=== PATIENT | female | born 1995 | race American Indian/Alaskan Native ===

== ENCOUNTER 2018-12-28 07:27 | Outpatient (CLI) | payer OTHER ==
[2018-12-28 07:50] VITALS: BP 123/72
== END 2018-12-28 10:02 | disposition home or self-care (01) ==
LOC: TRG 07:27
PROVIDERS: ATTEND Obstetrics & Gynecology
DX: O47.1 False labor at or after 37 completed weeks of gestation (principal); Z3A.38 38 weeks gestation of pregnancy
CPT/HCPCS: 59025

== ENCOUNTER 2018-12-28 16:38 | Inpatient (IN) | payer OTHER ==
[2018-12-28] MEDS ORDERED: TERBUTALINE 1 MG/1 ML INJ SUB-Q PRN (18:55)
[2018-12-28] MEDS ORDERED: ePHEDrine SULFATE 50 MG/1 ML INJ IV PRN ×2 (18:55→22:14)
[2018-12-28] MEDS ORDERED: TERBUTALINE 1 MG/1 ML INJ IVP PRN (18:55)
[2018-12-28] MEDS ORDERED: MINERAL OIL 30 ML ORAL LIQD PO PRN (18:55)
[2018-12-28] MEDS ORDERED: fentaNYL 100 MCG/2 ML INJ IV PRN (18:55)
[2018-12-28] MEDS ORDERED: LIDOCAINE (2%) 20 MG/1 ML VIAL 20 ML MDV INFILTRATI ONE (18:55)
[2018-12-28] MEDS ORDERED: BUTORPHANOL 2 MG/1 ML INJ IV PRN (18:55)
[2018-12-28] MEDS ORDERED: OXYTOCIN DRIP 30 UNITS/500 ML BAG IV SCH ×2 (19:00→23:50)
[2018-12-28] MEDS ORDERED: OXYTOCIN 20 UNIT/1000ML DRIP 20 UNITS/1,000 ML BAG IV SCH (19:00)
[2018-12-28 19:10] LABS: Hematocrit 34.4 % (30.3-42.9); Hemoglobin 11.3 gm/dl (10.1-14.3); Mean Corpuscular HGB Conc 33 % (30-34); Mean Corpuscular Volume 89 fl (79-97); Platelet Count 407 K/mm3 (140-440); Red Blood Count 3.87 M/mm3 (3.65-5.03); Red Cell Distribution Width 14.1 % (13.2-15.2)
[2018-12-28] MEDS ORDERED: AMPICILLIN/NS 2 GM/100 ML 2 GM/100 ML BAG IV ONE (19:30)
[2018-12-28] MEDS: LACTATED RINGERS 1,000 ML IV SCH ×3 (21:00→22:43)
[2018-12-28 21:30] LABS: Hematocrit 36.9 % (30.3-42.9); Hemoglobin 11.9 gm/dl (10.1-14.3)
[2018-12-28] MEDS ORDERED: BUPIVACAINE/PF (0.5%) 5 MG/1 ML 10 ML VIAL INFILTRATI ONE (21:41)
[2018-12-28] MEDS ORDERED: AMPICILLIN/NS 1 GM/50 ML 1 GM/50 ML BAG IV SCH (22:00)
[2018-12-28] MEDS ORDERED: NALOXONE 2 MG/2 ML INJ IV PRN (22:14)
--- NOTE | 2018-12-28 22:14 | Anesthesia Consultation ---
Anesthesia Consult and Med Hx Date of service: 12/28/18 - Airway Anesthetic Teeth Evaluation: Good ROM Head & Neck: Adequate Mental/Hyoid Distance: Adequate Mallampati Class: Class II Intubation Access Assessment: Good - Pulmonary Exam CTA: Yes - Cardiac Exam Cardiac Exam: RRR - Pre-Operative Health Status ASA Pre-Surgery Classification: ASA2, Emergency Proposed Anesthetic Plan: Epidural - Pulmonary Hx Asthma: No - Cardiovascular System Hx Hypertension: No - Central Nervous System Hx Seizures: No Hx Psychiatric Problems: No - Endocrine Hx Renal Disease: No Hx Hypothyroidism: No Hx Hyperthyroidism: No - Hematic Hx Anemia: No Hx Sickle Cell Disease: No - Other Systems Hx Alcohol Use: No
[2018-12-28] MEDS ORDERED: fentaNYL-BUPIV 2 MCG/ML-0.125% 200 MCG/100 ML BAG EPIDURAL SCH (23:00)
[2018-12-29] MEDS: LACTATED RINGERS 1,000 ML IV SCH (02:29)
--- NOTE | 2018-12-29 03:12 | History and Physical Report ---
History of Present Illness Date of examination: 12/29/18 Date of admission: 12/28/18 19:20 Chief complaint: contractions History of present illness: This is a 23 yo EDC Dec 3 her efor contractions. She is apatient of [facility] here for contractions noted to be 4cm and admitted. She has a hx of asthma. She had a hx of pericardial effusion but resolved per MFM. Past History Past Medical History: asthma Past Surgical History: denies: no surgical history Family/Genetic History: none Social history: no significant social history, single. denies: smoking, alcohol abuse, prescription drug abuse - Obstetrical History Expected Date of Delivery: 01/13/19 Actual Gestation: 37 Week(s) 6 Day(s) : 1 Para: 0 Hx # Term Pregnancies: 0 Number of Pregnancies: 0 Spontaneous Abortions: 0 Induced : 0 Number of Living Children: 0 Medications and Allergies Allergies Allergy/AdvReac Type Severity Reaction Status Date / Time No Known Allergies Allergy Verified 12/28/18 17:55 Home Medications Medication Instructions Recorded Confirmed Last Taken Type Vit-Fe Fumar-FA [ 1 tab PO DAILY 12/28/18 12/28/18 3 Weeks Ago History Vitamin] ~12/07/18 Active Meds: Active Medications Butorphanol Tartrate (Stadol) 2 mg IV Q2H PRN PRN Reason: Pain , Severe (7-10) Ephedrine Sulfate (Ephedrine Sulfate) 10 mg IV Q2M PRN PRN Reason: Hypotension Ephedrine Sulfate (Ephedrine Sulfate) 10 mg IV Q2M PRN PRN Reason: Hypotension Fentanyl (Sublimaze) 100 mcg IV Q2H PRN PRN Reason: Labor Pain Last Admin: 12/28/18 20:03 Dose: 100 mcg Documented by: Oxytocin/Sodium Chloride (Pitocin/Ns 20 Unit/1000ml Drip) 20 units in 1,000 mls @ 125 mls/hr IV DIRECT LITZY Lactated Ringer's (Lactated Ringers) 1,000 mls @ 125 mls/hr IV DIRECT LITZY Last Admin: 12/29/18 02:29 Dose: 125 mls/hr Documented by: Ampicillin Sodium (Ampicillin/Ns 1 Gm/50 Ml) 1 gm in 50 mls @ 100 mls/hr IV Q4HR LITZY; Protocol Fentanyl/Bupivacaine/Sodium Chlor (Fentanyl-Bupiv 2 Mcg/Ml-0.125%) 200 mcg in 100 mls @ 12 mls/hr EPIDURAL TITR LITZY; Protocol Last Admin: 12/28/18 22:38 Dose: 12 mls/hr Documented by: Oxytocin/Sodium Chloride (Pitocin/Ns 30 Unit/500ml) 30 units in 500 mls @ 1 mls/hr IV TITR LITZY; Protocol Last Titration: 12/29/18 03:03 Dose: 0 milliunits/min, 0 mls/hr Documented by: Mineral Oil (Mineral Oil) 30 ml PO QHS PRN PRN Reason: Constipation Naloxone HCl (Naloxone) 0.2 mg IV Q5M PRN PRN Reason: Respiratory sedation Terbutaline Sulfate (Brethine) 0.25 mg SUB-Q ONCE PRN PRN Reason: Hyperstimulation/Hypertonicity Terbutaline Sulfate (Brethine) 0.25 mg IVP ONCE PRN PRN Reason: Hyperstimulation/Hypertonicity Review of Systems All systems: negative Genitourinary: contractions - Vital Signs Vital signs: Vital Signs Temp Pulse Resp BP Pulse Ox 98.4 F 89 20 147/73 99 12/28/18 17:32 12/28/18 17:32 12/28/18 17:32 12/28/18 17:32 12/28/18 17:32 Temp Pulse Resp BP Pulse Ox 97.4 F L 100 H 16 113/58 99 12/29/18 02:28 12/29/18 03:04 12/28/18 22:30 12/29/18 02:41 12/29/18 03:04 - Physical Exam Breasts: Positive: normal Cardiovascular: Regular rate, Normal S1 Abdomen: Positive: normal appearance, soft, normal bowel sounds. Negative: distention, tenderness, guarding Genitourinary (Female): Positive: normal external genitalia, normal perenium Vagina: Positive: normal moisture Uterus: Positive: normal size Anus/Rectum: Positive: normal perianal skin Extremities: Positive: normal Deep Tendon Reflex Grade: Normal +2 - Obstetrical Cervical Dilatation: 9 Cervical Effacement Percentage: 100 station: 0 Uterine Contraction Pattern: Regular Uterine Tone Measurement Phase: Contraction Uterine Contraction Intensity: Moderate Results Result Diagrams: 12/28/18 20:51 Abnormal lab results 12/28/18 Range/Units 18:44 WBC 12.0 H (4.5-11.0) K/mm3 All other labs normal. Assessment and Plan A/P HD#1 IUP 37 weeks Active labor GBS neg IVF, labs s/p epidural No IP abx needed expect vaginal delivery
[2018-12-29] MEDS ORDERED: oxyCODONE /ACETAMINOPHEN 5-325MG TAB PO PRN (04:00)
[2018-12-29] MEDS ORDERED: OXYTOCIN 20 UNIT/1000ML DRIP 20 UNITS/1,000 ML BAG IV SCH (04:00)
[2018-12-29] MEDS ORDERED: ONDANSETRON 4 MG/2 ML INJ IV PRN (04:00)
[2018-12-29] MEDS ORDERED: PROMETHAZINE 25 MG TAB PO PRN (04:00)
[2018-12-29] MEDS ORDERED: WITCH HAZEL/ GLYCERIN PAD TP PRN (04:00)
[2018-12-29] MEDS ORDERED: KETOROLAC 30 MG/1 ML INJ IV PRN (04:00)
[2018-12-29] MEDS ORDERED: ACETAMINOPHEN 325 MG TAB PO PRN (04:00)
[2018-12-29] MEDS ORDERED: LANOLIN/ZINC/DIMETHICONE (LANSINOH) 7 GM TP PRN (04:00)
[2018-12-29] MEDS ORDERED: diphenhydrAMINE 25 MG CAP PO PRN (04:00)
[2018-12-29] MEDS ORDERED: PROMETHAZINE 25 MG RECT SUPP PR PRN (04:00)
[2018-12-29] MEDS ORDERED: MAGNESIUM HYDROXIDE (MOM) ORAL LIQD UDC PO PRN (04:00)
--- NOTE | 2018-12-29 04:04 | Procedure Note ---
OB Delivery Note - Delivery Date of Delivery: 12/29/18 Surgeon: MATTHEW FERGUSON Estimated blood loss: other (400cc) - Vaginal Delivery position: OA Intrapartum events: meconium Delivery induction: none Delivery monitor: external FHT, external uterine Route of delivery: Delivery placenta: spontaneous Delivery cord: nuchal cord, 3 umbilical vessels Episiotomy: none Delivery laceration: 2nd degree Delivery repair: vicryl Anesthesia: local, epidural Delivery comments: Patient was noted to be c/c/ +1 and commenced to pushing a viable female at 0329 with a weight of 6 pounds 11oz. The baby head and shoulders delivered easily. The cord was clamped and cut and placed on mom chest. The placenta delivered intact with 3 vessel cord at 0334. Survey of perineum revealed 2nd degree laceration repaired with 2-0 vicryl in normal fashion after lidocaine injected and B/L vaginal laceration. EBL 400 cc. Patient tolerated procedure well and bonding with baby. NICU present and attended delivery - Infant A at 1 minute: 8 at 5 minutes: 9 Gender: Female (6 pounds 11 oz)
[2018-12-29] MEDS: IBUPROFEN 600 MG TAB PO SCH ×3 (04:16→18:47)
[2018-12-29] MEDS: PRENATAL VIT27-FE FUMARATE-FOLIC ACID VIT TAB PO SCH (10:34)
[2018-12-29] MEDS: DOCUSATE SODIUM 100 MG CAP PO SCH ×2 (10:38→22:00)
[2018-12-29] MEDS: HYDROcodone/ACETAMINOPHEN 5-325 MG TAB PO PRN ×2 (14:27→21:13)
[2018-12-29] MEDS ORDERED: BENZOCAINE/MENTHOL 20/0.5% TOP SPRAY 56 GM TP PRN (15:00)
[2018-12-29 16:21] LABS: Hemoglobin 9.4 gm/dl (10.1-14.3)
[2018-12-30] MEDS: IBUPROFEN 600 MG TAB PO SCH ×4 (00:48→17:57)
[2018-12-30] MEDS ORDERED: TETANUS,DIPH,PERTUSS(ACELL) VACCINE 0.5 ML SYRINGE IM ONE (06:00)
[2018-12-30] MEDS ORDERED: MEASLES, MUMPS & RUBELLA 12,500 UNIT/0.5 ML VACCINE SUB-Q ONE (06:00)
--- NOTE | 2018-12-30 09:01 | Progress Note ---
Assessment and Plan - Patient Problems (1) Vaginal delivery Current Visit: Yes Status: Acute Plan to address problem: patient doing well discharge home Subjective - Subjective Date of service: 12/30/18 Interval history: Patient reports feeling well. Pain well controlled Patient reports: appetite normal, voiding normally, pain well controlled [place]: doing well Objective - Vital Signs Latest vital signs: Vital Signs Temp Pulse Resp BP Pulse Ox 12/29/18 23:51 98.2 F 69 20 115/64 98 12/29/18 18:47 20 12/29/18 16:10 97.8 F 85 18 105/68 99 12/29/18 14:27 20 12/29/18 12:29 97.9 F 77 18 117/71 96 12/29/18 10:35 20 Intake and Output 12/29/18 12/30/18 12/30/18 22:59 06:59 14:59 Intake Total 240 Output Total 600 Balance -360 Intake: Oral 240 Output: Urine 600 Void 600 Other: Total, Intake Amount 240 Total, Output Amount 600 # Voids Void 1 - Exam Uterus: Present: normal, firm - Labs Labs: Abnormal lab results 12/29/18 Range/Units 15:45 Hgb 9.4 L (10.1-14.3) gm/dl Hct 29.0 L D (30.3-42.9) %
--- NOTE | 2018-12-30 09:02 | Discharge Summary ---
Providers - Providers Date of Admission: 12/28/18 19:20 Date of discharge: 12/30/18 Attending physician: MATTHEW FERGUSON MD Primary care physician: MATTHEW FERGUSON MD Hospitalization Reason for admission: active labor Delivery: Discharge diagnosis: IUP at term delivered [place] baby: female Hospital course: Patient admitted in active labor at term. Had . uncomplicated Condition at discharge: Good Disposition: DC-01 TO HOME OR SELFCARE - Discharge Diagnoses (1) Vaginal delivery Status: Acute Plan - Discharge Medications Prescriptions: Ibuprofen [Motrin] 800 mg PO Q8HR PRN #60 tablet PRN Reason: Pain, Mild (1-3) HYDROcodone/APAP 5-325 [Biggs 5/325] 1 each PO Q6HR PRN #20 tablet PRN Reason: Pain - Provider Discharge Summary Activity: no sex for 6 weeks, no heavy lifting 4 weeks, no strenuous exercise Diet: routine Instructions: routine Additional instructions: [] Smoking cessation referral if applicable(refer to patient education folder for contact #) [] Refer to [facility]'s [facility] Center Booklet Call your doctor immediately for: * Fever > 100.5 * Heavy vaginal bleeding ( >1 pad per hour) * Severe persistent headache * Shortness of breath * Reddened, hot, painful area to leg or breast * schedule followup in 4 weeks - Follow up plan Forms: [facility] Discharge Summary
[2018-12-30] MEDS: DOCUSATE SODIUM 100 MG CAP PO SCH ×2 (11:25→21:53)
[2018-12-30] MEDS: PRENATAL VIT27-FE FUMARATE-FOLIC ACID VIT TAB PO SCH (11:25)
[2018-12-31] MEDS: IBUPROFEN 600 MG TAB PO SCH ×3 (00:32→14:50)
[2018-12-31 08:27] VITALS: BP 118/71
[2018-12-31] MEDS: PRENATAL VIT27-FE FUMARATE-FOLIC ACID VIT TAB PO SCH (09:59)
[2018-12-31] MEDS: DOCUSATE SODIUM 100 MG CAP PO SCH (09:59)
== END 2018-12-31 15:25 | disposition home or self-care (01) | DRG 775 ==
LOC: TRG 16:38 → LD 19:20 → TRG 19:20 → OB 12-29 07:14
PROVIDERS: ADMIT Obstetrics & Gynecology; ATTEND Obstetrics & Gynecology
PROC: 10E0XZZ Delivery of Products of Conception, External Approach (ICD-10-PCS; principal; 2018-12-29)
PROC: 0KQM0ZZ Repair Perineum Muscle, Open Approach (ICD-10-PCS; 2018-12-29)
PROC: 3E0234Z Introduction of Serum, Toxoid and Vaccine into Muscle, Percutaneous Approach (ICD-10-PCS; 2018-12-29)
PROC: 3E0R3BZ Introduction of Anesthetic Agent into Spinal Canal, Percutaneous Approach (ICD-10-PCS; 2018-12-29)
PROC: 00HU33Z Insertion of Infusion Device into Spinal Canal, Percutaneous Approach (ICD-10-PCS; 2018-12-30)
DX: O77.0 Labor and delivery complicated by meconium in amniotic fluid (principal); O69.81X0 Labor and delivery complicated by cord around neck, without compression, not applicable or unspecified; O99.52 Diseases of the respiratory system complicating childbirth; J45.909 Unspecified asthma, uncomplicated; O70.1 Second degree perineal laceration during delivery; Z3A.37 37 weeks gestation of pregnancy; Z37.0 Single live birth; Z23 Encounter for immunization
CPT/HCPCS: 36415; 59025; 85014; 85018; 85027; 86592; 86850; 86900; 86901; 90707; 90715; G0378; J0290; J2590; J3010; J7120; Q0177